=== PATIENT | female | born 1985 | race Caucasian/White ===

== ENCOUNTER 2021-06-18 10:11 | Emergency (ER) | payer OTHER ==
[~2021-06-18] VITALS: Ht 162.6 cm; Wt 60.0 kg
--- NOTE | 2021-06-18 10:27 | PHYS DOC ---
General Adult HPI: HPI: Patient is a 35 year old female who presents with 1 week of wheezing, shortness of breath, cough. She does have a history of asthma. She states she has an inhaler and her family care physician on put her on Cefixime. She states albuterol inhaler is not helping much. She states she has not been taking her allergy medication because she is on antibiotic. She denies chest pain, abdominal pain, vaginal bleeding, vaginal discharge, back pain, nausea, vomiting, diarrhea, fever, headache, dizziness, syncope, numbness or tingling, focal weakness. Review of Systems: Review of Systems: Constitutional: Denies fever or chills. [] Eyes: Denies change in visual acuity. [] HENT: Denies nasal congestion or sore throat. [] Respiratory: + cough or +shortness of breath. [] Cardiovascular: Denies chest pain or edema. [] GI: Denies abdominal pain, nausea, vomiting, bloody stools or diarrhea. [] : Denies dysuria. [] Musculoskeletal: Denies back pain or joint pain. [] Integument: Denies rash. [] Neurologic: Denies headache, focal weakness or sensory changes. [] Endocrine: Denies polyuria or polydipsia. [] Lymphatic: Denies swollen glands. [] Psychiatric: Denies depression or anxiety. [] Heart Score: C/O Chest Pain: No Physical Exam: PE: Constitutional: Well developed, well nourished, no acute distress, non-toxic appearance. [] HENT: Normocephalic, atraumatic, bilateral external ears normal, oropharynx moist, no oral exudates, nose normal. [] Eyes: PERRLA, EOMI, conjunctiva normal, no discharge. [] Neck: Normal range of motion, no tenderness, supple, no stridor. [] Cardiovascular:Heart rate regular rhythm, no murmur [] Lungs & Thorax: Bilateral upper breath sounds wheezing in the rest diminished and tight to auscultation [] Abdomen: Bowel sounds normal, soft, no tenderness, no masses, no pulsatile masses. [] Skin: Warm, dry, no erythema, no rash. [] Back: No tenderness, no CVA tenderness. [] Extremities: No tenderness, no cyanosis, no clubbing, ROM intact, no edema. [] Neurologic: Alert and oriented X 3, normal motor function, normal sensory function, no focal deficits noted. [] Psychologic: Affect normal, judgement normal, mood normal. [] EKG: EKG: [] Radiology/Procedures: Radiology/Procedures: [] Impression: [facility] [address] [place] [address] IMAGING REPORT Signed PATIENT: ABDOULAYE SMALLWOOD ACCOUNT: [id number] : 1985 LOCATION: ER AGE: 35 SEX: F EXAM STATUS: PRE ER ORD. PHYSICIAN: FELIX SMITH APRN REASON: soa, wheezing PROCEDURE: PORTABLE CHEST 1V Single view chest dated 06/18/2021 10:38 AM: COMPARISON: None Clinical Indication: Shortness of breath and wheezing. Findings: Single upright portable exam of the chest was performed. Heart size and mediastinal contours are within normal limits. Lungs are clear. No consolidation or pleural effusion. No pneumothorax. IMPRESSION: No acute radiographic abnormality. Electronically signed by: Chilango Patel MD (06/18/2021 10:40 AM) [id number] DICTATED and SIGNED BY: CHILANGO PATEL MD DATE: 06/18/21 1038 Course & Med Decision Making: Course & Med Decision Making Pertinent Labs and Imaging studies reviewed. (See chart for details) See HPI. Alert and oriented x4. Ambulatory steady gait. Speaks in clear sentences. Respiratory expiratory wheezing that is slightly heard in the rest diminished and tight sounding. Skin pink warm and dry. Afebrile. Ordered a continuous albuterol breathing treatment for the patient this time. Have also ordered Zyrtec as she has not taken allergy medication. After our albuterol treatment and Zyrtec patient is still very tight but she is moving air a little bit more freely. She states she is feeling slightly better. I have decided to give a one-time dose of 10 mg of dexamethasone in the ED. I have also ordered Pulmicort nebulized treatment to give her. After dexamethasone and Pulmicort patient is stating she is feeling much better. Patient has her albuterol inhaler she was given at her primary care doctor and she can continue taking her antibiotic. Patient is educated to start taking her allergy medications tomorrow. Patient states that she is going to call her doctor tomorrow to let them know what is going on. Patient is educated that she should return if she starts having shortness of breath again. [] [place] Disclaimer: Dragon Disclaimer: This electronic medical record was generated, in whole or in part, using a voice recognition dictation system. Departure Departure Impression: Primary Impression: Asthma Qualified Codes: J45.30 - Mild persistent asthma, uncomplicated Disposition: HOME / SELF CARE / HOMELESS Condition: STABLE Patient Instructions: Asthma Prevention-Brief, Asthma, Adult Additional Instructions: Continue taking your medications as scheduled. Take your allergy medication da shay as it is prescribed. Chest x-ray did not show any pneumonia or bronchitis. Call your doctor first thing in the morning to let them know you were sent. If at any point your symptoms worsen return to the emergency room. FELIX SMITH APRN Jun 18, 2021 10:27
[2021-06-18] MEDS: ALBUTEROL SULFATE 2.5 MG/3 ML NEBU. CONT NEB ONE (10:34)
--- NOTE | 2021-06-18 10:43 | RAD ---
Single view chest dated 06/18/2021 10:38 AM: COMPARISON: None Clinical Indication: Shortness of breath and wheezing. Findings: Single upright portable exam of the chest was performed. Heart size and mediastinal contours are with in normal limits. Lungs are clear. No consolidation or pleural effusion. No pneumothorax. IMPRESSION: No acute radiographic abnormality. Electronically signed by: Chilango Patel MD (06/18/2021 10:40 AM) [id number]
[2021-06-18] MEDS: CETIRIZINE HCL 10 MG TABLET. PO ONE (10:45)
[2021-06-18] MEDS: IPRATRPIUM/ALBUTEROL 0.5/2.5MG 3 ML NEBU. NEB ONE (11:45)
[2021-06-18] MEDS ORDERED: BUDESONIDE 0.5 MG/2 ML NEBU. NEB ONE (11:59)
[2021-06-18] MEDS: BUDESONIDE 0.5 MG/2 ML NEBU. NEB ONE (12:01)
[2021-06-18] MEDS: DEXAMETHASONE 4 MG TABLET PO ONE (12:01)
[2021-06-18 12:50] VITALS: BP 118/68
== END 2021-06-18 12:50 | disposition home or self-care (01) ==
LOC: ER 10:11
DX: J45.30 Mild persistent asthma, uncomplicated (principal)
CPT/HCPCS: 71045; 94640; 94644; 99285; J7613; J7626

== ENCOUNTER → 2021-06-20 | Outpatient (CLI) | payer OTHER ==
[2021-06-18 12:50] VITALS: BP 118/68
[2021-06-20 16:36] LABS: HEMATOCRIT 40.7 % (36.0-47.0); RED BLOOD COUNT 4.66 x10^6/uL (3.50-5.40); RED CELL DISTRIBUTION WIDTH 13.9 % (11.5-14.5); WHITE BLOOD COUNT 14.9 x10^3/uL (4.0-11.0)
[2021-06-21 19:18] LABS: RUBELLA IGG ANTIBODY 5.15 index (Immune >0.99)
== END ==
LOC: LAB 15:37
PROVIDERS: ATTEND Registered Nurse
DX: Z34.91 Encounter for supervision of normal pregnancy, unspecified, first trimester (principal)
CPT/HCPCS: 36415; 85027; 85660; 86592; 86703; 86762; 86787; 86803; 86850; 86900; 86901; 87340